=== PATIENT | female | born 1945 | race African-American/Black ===

== ENCOUNTER → 2022-01-26 | Day surgery (SDC) | payer OTHER ==
[~2022-01-26] MED LIST: BUPIVACAINE HCL/PF 0.5% (5MG/ML) 10 ML VIAL ONE; DEXAMETHASONE SOD PHOSPHATE 4 MG/1 ML VIAL ONE; KETAMINE HCL 200 MG/20 ML VIAL ONE; LIDOCAINE HCL 2% (20ML MULTI-DOSE VIAL) ONE; MIDAZOLAM HCL 2 MG/2 ML SINGLE DOSE VIAL ONE; NEOSTIGMINE METHYLSULFATE 0.5 MG/ML - 10 ML MDV ONE; PROPOFOL 20 ML ONE; ROCURONIUM BROMIDE 100 MG/10 ML VIAL ONE; SUCCINYLCHOLINE CHLORIDE 200 MG/10 ML SYRINGE ONE
[2022-01-26 06:29] VITALS: BMI 28.5
[2022-01-26 06:41] VITALS: BP 132/80; PULSE 58; TEMP 97.3
== END | disposition home or self-care (01) ==
LOC: JASU-SURG 04:04
PROVIDERS: ATTEND Podiatrist
DX: Z53.8 Procedure and treatment not carried out for other reasons (principal)
CPT/HCPCS: C9803-CS; U0003; U0005

== ENCOUNTER 2022-01-30 04:32 | Day surgery (SDC) | payer OTHER ==
[2022-01-27 17:26] VITALS: BMI 28.5
[2022-01-30] MEDS ORDERED: BUPIVACAINE HCL/PF 0.5% (5MG/ML) 10 ML VIAL ONE (07:14)
[2022-01-30] MEDS ORDERED: BUPIVACAINE HCL/PF 0.5% (5MG/ML) 10 ML VIAL IJ ONE (07:44)
[2022-01-30] MEDS ORDERED: LIDOCAINE HCL 2% (50ML VIAL) NR ONE (07:44)
[2022-01-30] MEDS ORDERED: DEXAMETHASONE SOD PHOSPHATE 4 MG/1 ML VIAL IVPUSH ONE (09:15)
[2022-01-30 10:26] VITALS: TEMP 98.7
[2022-01-30 13:33] VITALS: BP 138/77; PULSE 72
== END 2022-01-30 14:55 | disposition home or self-care (01) ==
LOC: JASU-SURG 04:32
PROVIDERS: ATTEND Podiatrist
PROC: 0QBQ0ZZ Excision of Right Toe Phalanx, Open Approach (ICD-10-PCS; principal; 2022-01-30 07:30)
PROC: 0SRP0JZ Replacement of Right Toe Phalangeal Joint with Synthetic Substitute, Open Approach (ICD-10-PCS; 2022-01-30 07:30)
DX: M20.11 Hallux valgus (acquired), right foot (principal); M20.41 Other hammer toe(s) (acquired), right foot
CPT/HCPCS: 73630-TC-RT-FY; 88304-TC; 88311-TC; 97116-GP